=== PATIENT | female | born 1950 ===

== ENCOUNTER 2016-10-08 06:24 | Day surgery (SDC) | payer MEDICARE, OTHER ==
[2015-08-24 13:10] VITALS: BMI 27.1
--- NOTE | 2016-10-05 18:39 | HP ---
REASON FOR ADMISSION: Left heart cath, possible angioplasty, abnormal stress test. BRIEF CLINICAL HISTORY: This is a 66-year-old female with past medical history significant for diabe mando, hypertension, hyperlipidemia. Having some chest discomfort and dyspnea on exertion so patient u nderwent a stress test that was abnormal, so patient is scheduled for elective cardiac cath and possi ble angioplasty. PAST HISTORY: Significant for diabetes, hypertension, hyperlipidemia. SOCIAL HISTORY: Denies any smoking. Denies any history of alcohol abuse. CURRENT MEDICATIONS: The patient is taking vitamin E, multivitamin, insulin, ascorbic acid, Zetia, r osuvastatin, that is Crestor ____ mg daily; Zemplar 1 mg daily, metformin 1000, tramadol and Zanaflex and valsartan, hydrochlorothiazide. ALLERGIES: ONGLYZA, ABDOMINAL PAIN. RECENT CARDIAC WORKUP: As follows: The patient had a stress test on 09/19/2016 that shows equivocal versus partial reversible ischemia, apical anteroseptal suggestive of ischemia. When comparison from 07/26/2014, there appears new and larger and more reversible. The patient has also echocardiography 09/13/2016, Dr. Dey's office, that showed ejection fraction 69%, moderate diastolic dysfunction, mi ld mitral regurgitation, mild tricuspid regurgitation. REVIEW OF SYSTEMS: As per HPI. PHYSICAL EXAMINATION: As follows: VITAL SIGNS: Height of the patient is 5 feet 4 inches, weight of the patient 158 pounds, body mass i ndex 27 kg/m2. Heart rate 64, blood pressure 130/80. HEENT: PERRLA. Extraocular muscles intact. NECK: Supple. No carotid bruits. No thyromegaly. CHEST: Clear to auscultation. HEART: S1, S2 regular. ABDOMEN: Soft. EXTREMITIES: Clubbing and cyanosis negative. BLOOD WORKUP: Pending. IMPRESSION: Abnormal stress test, mitral and tricuspid regurgitation, diabetes, hypertension, hyperl ipidemia, multiple risk factors of coronary artery disease, abnormal stress test in comparison to the last stress 2012, new. We will proceed for cardiac catheterization. We will load with 300 Plavix, aspirin. Risk, benefits, alternatives discussed with the patient. We will proceed for cardiac rose terization. Further recommendation after cardiac catheterization. We will follow with you. Thank you, ____, for providing us the opportunity in taking care of the patient. Angela Oneil MD cc: [id number] TT: 10/05/2016 18:38:31 sn
[2016-10-08 07:01] LABS: ADD MANUAL DIFF? NO
[2016-10-08 07:09] LABS: BASO # 0.03 K/mm3 (0.0-2.0); BASO % 0.5 % (0.0-3.0); EOS # 0.5 (0.0-0.7); EOS % 8.2 % (1.5-5.0); GRAN # 2.47 (1.4-6.5); GRAN % 40.7 % (50.0-68.0); HEMATOCRIT 36.1 % (36.0-48.0); LYMPH # 2.6 (1.2-3.4); LYMPH % 41.9 % (22.0-35.0); MEAN CELL VOLUME 85.7 fL (80.0-105.0); MEAN CORPUSCULAR HEMOGLOBIN 28.5 pg (25.0-35.0); MEAN CORPUSCULAR HGB CONC 33.2 g/dl (31.0-37.0); MEAN PLATELET VOLUME 11.5 fl (7.0-11.0); MONO # 0.5 (0.1-0.6); MONO % 8.7 % (1.0-6.0); PLATELET COUNT 235 10^3/uL (120.0-450.0); RED CELL DISTRIBUTION WIDTH 13.4 % (11.5-14.5); WHITE BLOOD COUNT 6.1 10^3/ul (4.5-11.0)
[2016-10-08] MEDS ORDERED: Lidocaine 2% Inj (20ml) ONE (07:10)
[2016-10-08] MEDS ORDERED: Nitroglycerin 50mg in D5W 50 MG/250 ML BOTTLE IV ONE (07:11)
[2016-10-08 07:13] LABS: CALCIUM 9.7 mg/dL (8.4-10.5); POTASSIUM 4.5 mmol/L (3.6-5.0)
[2016-10-08 07:17] LABS: INR 1.01 (0.93-1.08)
[2016-10-08] MEDS ORDERED: Iodixanol 320 mg/ml 150 ml Bottle IV ONE (07:23)
[2016-10-08] MEDS ORDERED: Midazolam 2 MG/2 ML VIAL ONE (07:54)
[2016-10-08 08:08] VITALS: TEMP 98; O2SAT 100
[2016-10-08] MEDS ORDERED: Bacitracin 500 Units/gm Oint Foilpak UD TOP ONE (08:41)
[2016-10-08] MEDS ORDERED: Sodium Chloride 0.9% 1,000 ML IV SCH (08:45)
[2016-10-08] MEDS ORDERED: Bacitracin 500 Units/gm Oint Foilpak UD ONE (10:55)
[2016-10-08 11:19] VITALS: BP 132/63; PULSE 58; RESP 18
--- NOTE | 2016-10-08 18:05 | CARD ---
APPROVED REPORT Procedure(s) performed: Left Heart Catheterization HISTORY The patient is a 66 year-old female with a history of : most recent EF: 65%. (EF Method: RADIONUCLIDE), renal failure without dialysis, diabetes mellitus with insulin treatment , previous diagnostic cath, hypertension , dyslipidemia . INDICATION The indication(s) include : positive stress test. CASE TECHNIQUE The patient was brought electively to the Cardiac Catheterization Laboratory in a fasting state and was prepped and draped in a sterile manner. The left wrist was infiltrated with 2% Lidocaine subcutaneous anesthesia. A 6 Fr Glidesheath (Radial) sheath was inserted into the left radial artery without difficulty. Coronary angiography was performed using coronary diagnostic catheters. The left coronary system was accessed and visualized with a Diagnostic ,5 Fr JL 3.5 catheter. The right coronary system was accessed and visualized with a Diagnostic ,5 Fr JR 4 catheter. The left ventricle was accessed and visualized with a 5 Fr Pigtail 145 (Angled) catheter. Left ventricular/Aortic Valve gradient assessed on pullback. Left ventriculogram was performed in [place] projection. The patient tolerated the procedure well and there were no complications associated with the procedure. Vessel Analysis The patient's coronary anatomy is right dominant. The left main coronary artery is a large size vessel with intimal irregularities and without significant stenosis. The left main bifurcates to the left anterior descending and circumflex. The left anterior descending artery is a medium size vessel with diffuse calcification noted throughout this vessel and without significant stenosis. There is a 55-60% stenosis in the mid segment. The first diagonal branch is a small size vessel with diffuse calcification noted throughout this vessel and without significant stenosis. The second diagonal branch is a small size vessel with diffuse calcification noted throughout this vessel and without significant stenosis. The circumflex artery is a large size vessel with diffuse calcification noted throughout this vessel and without significant stenosis. The right coronary artery is a large size vessel with diffuse calcification noted throughout this vessel and without significant stenosis. There is a 30-40% stenosis in the mid segment. The right posterior descending artery is a small size vessel with diffuse calcification noted throughout this vessel and without significant stenosis. The right posterolateral branch is a small size vessel with diffuse calcification noted throughout this vessel and without significant stenosis. Left Ventricle The left ventricle is normal in size with normal contractility. The left ventricular ejection fraction is estimated to be 65%. The left ventricular end diastolic pressure is 15 mmHg. There was no gradient across the aortic valve upon pullback. Conclusion Non obstructive CAD, Limited to Mid LAD Moderate Diz( 55%) and mid Diz to Mid RCA (30-40%). Preserved Lv Fx. EF-65%, EDP-15 mmof hg. When film compared from previous Cath 09/25/2007 No Significant Changes noted in CAD. Recommendations Aggressive Medical TherapyCardiac Risk Reduction Program Weight Loss Reduction Program CC; drs. Miller/ Yissel.
--- NOTE | 2016-10-08 18:57 | DS ---
BRIEF CLINICAL HISTORY: This is a 66-year-old female with past medical history significant for diabe mando, hypertension, hyperlipidemia, obesity, underwent cardiac catheterization because of abnormal str ess test dated 10/08/2016 that showed nonobstructive coronary artery disease. The patient is current ly being discharged with a plan to be followed up with Dr. Oneil in 1-2 weeks. DISCHARGE MEDICATIONS: Include resumption of all previous medication. PRINCIPAL PROCEDURE DONE DURING ADMISSION: Included left heart catheterization from the left radial approach. DIAGNOSES: Nonobstructive coronary artery disease limited only to mid left anterior descending 50% a nd diagonal 1 at 50-60%, preserved left ventricular function. Angela Oneil MD cc:Damian Miller MD; Angela Dey MD [phone] TT: 10/08/2016 18:56:33 vt
== END 2016-10-08 12:15 | disposition home or self-care (01) ==
LOC: CATH 06:24
PROVIDERS: ATTEND Internal Medicine Cardiovascular Disease
DX: I25.10 Atherosclerotic heart disease of native coronary artery without angina pectoris (principal); I10 Essential (primary) hypertension; E78.5 Hyperlipidemia, unspecified; I08.1 Rheumatic disorders of both mitral and tricuspid valves; E11.9 Type 2 diabetes mellitus without complications; Z79.4 Long term (current) use of insulin
CPT/HCPCS: 36415; 80048; 80061; 85025; 85610; 85730; 86850; 86900; 93458; 99152; C1769; C1887 ×2; J1644 ×2; J2250; J3010; J7040 ×2

== ENCOUNTER 2017-06-17 09:53 | Emergency (ER) | payer MEDICARE, SELFPAY ==
[2017-06-17 09:53] VITALS: BMI 27.1
[2017-06-17] MEDS ORDERED: Oxycodone/Acetaminophen 2.5/325 mg Tab PO STA (11:13)
--- NOTE | 2017-06-17 11:18 | ED PDOC ---
Arrival/HPI - General Chief Complaint: Hip Pain Time Seen by Provider: 06/17/17 11:12 Historian: Patient - History of Present Illness Narrative History of Present Illness (Text): 06/17/17 11:13 Ines Luna is a 67 year old female, whose past medical history includes hypertension, diabetes, arthritis, and high cholesterol, who presents to the emergency department complaining of constant left hip pain for 4 days. She reports that the pain is worse with ambulation. Patient states that she called her doctor's office but the phone was busy so she went to the emergency department. Patient notes that she takes Tramadol for her chronic back pain and reports that it helped with her hip pain. Patient denies any trauma. Denies nausea, vomiting, abdominal pain, chest pain, shortness of breath, diarrhea, constipation, leg numbness, leg weakness, or difficulty ambulating. PMD: Dr. Miller Time/Duration: < week Symptom Onset: Gradual Symptom Course: Unchanged Activities at Onset: Light Context: Home Past Medical History - Provider Review Nursing Documentation Reviewed: Yes - Infectious Disease Hx of Infectious Diseases: None - Tetanus Immunization Tetanus Immunization: Unknown - Reproductive Menopause: Yes - Cardiac Hx Pacemaker: No - Neurological Hx Paralysis: No - HEENT Hx Glaucoma: Yes (ou) - Endocrine/Metabolic Hx Diabetes Mellitus Type 2: Yes - Hematological/Oncological Hx Blood Transfusions: No Hx Blood Transfusion Reaction: No - Musculoskeletal/Rheumatological Hx Musculoskeletal Disorders: Yes - Psychiatric Hx Emotional Abuse: No Hx Physical Abuse: No Hx Substance Use: No - Surgical History Hx Hysterectomy: Yes (partial hysterectomy) Other/Comment: back surgery lower. nine years ago - Anesthesia Hx Anesthesia Reactions: No Hx Malignant Hyperthermia: No - Suicidal Assessment Feels Threatened In Home Enviroment: No Family/Social History - Physician Review Nursing Documentation Reviewed: Yes Family/Social History: No Known Family HX Smoking Status: Never Smoked Hx Alcohol Use: No Hx Substance Use: No Hx Substance Use Treatment: No Allergies/Home Meds Allergies/Adverse Reactions: Allergies saxagliptin HCl [From Onglyza] Adverse Reaction (Severe, Verified 10/02/16 09:54 ) ABD PAIN Home Medications: Home Meds Medication Instructions Recorded Confirmed Metformin HCl [Metformin] 1,000 mg PO BID 07/01/13 10/08/16 Paricalcitol [Zemplar] 1 mcg PO 5XD 07/01/13 10/08/16 tiZANidine [Zanaflex] 4 mg PO HS 03/22/14 10/08/16 traMADol [Ultram] 50 mg PO Q8H PRN 03/22/14 10/08/16 Ezetimibe [Zetia] 10 mg PO DAILY 07/25/15 10/08/16 Rosuvastatin Calcium [Crestor] 20 mg PO DAILY 08/24/15 10/08/16 Sevelamer Carbonate [Renvela] 800 mg PO TID 08/24/15 10/08/16 Valsartan/Hydrochlorothiazide 1 tab PO QAM 08/24/15 10/08/16 [Valsartan-Hctz 320-12.5 mg Tab] Ascorbic Acid [Vitamin C 500 mg 500 mg PO DAILY 10/02/16 10/08/16 Tab] Bimatoprost [Lumigan] 1 drop LEFTEYE QAM 10/02/16 10/08/16 Insulin Aspart/Insulin Aspar 30 units SC ACBD 10/02/16 10/08/16 [Novolog Mix 70/30 (70/30 units/ml)] Multivitamin [Daily Praneeth] 1 tab PO DAILY 10/02/16 10/08/16 Vitamin E Acetate [Vitamin E] 400 unit PO DAILY 10/02/16 10/08/16 Review of Systems - Physician Review All systems were reviewed & negative as marked: Yes - Review of Systems Constitutional: absent: Fevers, Night Sweats Eyes: absent: Vision Changes ENT: absent: Hearing Changes Respiratory: absent: SOB, Cough Cardiovascular: absent: Chest Pain Gastrointestinal: absent: Abdominal Pain, Constipation, Diarrhea, Nausea, Vomiting Genitourinary Female: absent: Dysuria, Frequency, Hematuria, Urine Output Changes, Vaginal Bleeding, Vaginal Discharge Musculoskeletal: Back Pain (chronic), Other (Left hip pain) Skin: absent: Rash, Pruritis Neurological: absent: Headache, Dizziness, Focal Weakness, Gait Changes, Speech Changes, Facial Droop, Disequilibrium, Seizure Endocrine: absent: Diaphoresis Hemo/Lymphatic: absent: Adenopathy Psychiatric: absent: Anxiety, Depression Physical Exam Vital Signs Reviewed: Yes Vital Signs Temp Pulse Resp BP Pulse Ox 06/17/17 12:36 65 18 124/69 97 06/17/17 11:18 98.3 F 63 18 126/72 97 Temperature: Afebrile Blood Pressure: Normal Pulse: Regular Respiratory Rate: Normal Appearance: Positive for: Well-Appearing, Non-Toxic, Comfortable Pain Distress: None Mental Status: Positive for: Alert and Oriented X 3 - Systems Exam Head: Present: Atraumatic, Normocephalic Pupils: Present: PERRL Extroacular Muscles: Present: EOMI Conjunctiva: Present: Normal Mouth: Present: Moist Mucous Membranes Neck: Present: Normal Range of Motion. No: Meningeal Signs, Paraspinal Tenderness Respiratory/Chest: Present: Clear to Auscultation, Good Air Exchange. No: Respiratory Distress, Accessory Muscle Use Cardiovascular: Present: Regular Rate and Rhythm, Normal S1, S2. No: Murmurs Abdomen: Present: Normal Bowel Sounds. No: Tenderness, Distention, Peritoneal Signs Back: Present: Normal Inspection Upper Extremity: Present: Normal Inspection. No: Cyanosis, Edema Lower Extremity: Present: Normal ROM, Tenderness (Bony left sided hip tenderness ; steady gait) Neurological: Present: GCS=15, CN II-XII Intact, Speech Normal Skin: Present: Warm, Dry, Normal Color. No: Rashes Psychiatric: Present: Alert, Oriented x 3, Normal Insight, Normal Concentration Medical Decision Making ED Course and Treatment: 06/17/17 11:19 Impression: 67 year old female complaining of constant left hip pain for 4 days. Afebrile and well appearing Differential Diagnosis included but are not limited to: Arthritis. R/o fracture Plan: -- Percocet -- Hip X-ray -- Reassess and disposition Prior Visits: Notes and results from previous visits were reviewed. Patient was last seen in the emergency department on 07/25/15 complaining of abdominal pain. Patient was discharged home. Progress Notes: 06/17/17 12:17 Xray negative for fracture- shows "[id number] bilateral osteoarthritic changes. No evidence of acute fracture or dislocation." Patient has no weakness or numbness. She has hx of extensive arthritis. Instructed to follow- up with PMD for further imaging, likely outpatient MRI - RAD Interpretation Radiology Orders: 06/17/17 11:13 Hip Bi with Pelvis Fall Protocol [HIP MIN 2V W/ PELVIS GABBI] [RAD] Stat - Medication Orders Current Medication Orders: Discontinued Medications Oxycodone/Acetaminophen (Percocet 2.5/325 Mg Tab) 1 tab PO STAT STA Stop: 06/17/17 11:14 Last Admin: 06/17/17 12:06 Dose: 1 tab - Scribe Statement The provider has reviewed the documentation as recorded by the Ce Pierce Provider Scribe Attestation: All medical record entries made by the Scribe were at my direction and personally dictated by me. I have reviewed the chart and agree that the record accurately reflects my personal performance of the history, physical exam, medical decision making, and the department course for this patient. I have also personally directed, reviewed, and agree with the discharge instructions and disposition. Disposition/Present on Arrival - Present on Arrival Any Indicators Present on Arrival: No History of DVT/PE: No History of Uncontrolled Diabetes: No Urinary Catheter: No History of Decub. Ulcer: No History Surgical Site Infection Following: None - Disposition Have Diagnosis and Disposition been Completed?: Yes Diagnosis: Hip pain, left Disposition: HOME/ ROUTINE Disposition Time: 12:18 Patient Plan: Discharge Condition: GOOD Discharge Instructions (ExitCare): Hip Pain (ED) Additional Instructions: Follow-up with Dr. Miller within 2 days. Take tramadol for pain. Return with any worsening symptoms. Referrals: Damian Miller MD [Primary Care Provider] - Follow up with primary Forms: [employer] ([place])
[2017-06-17 11:21] VITALS: RESP 18; TEMP 98.3; O2SAT 97
[2017-06-17 12:36] VITALS: BP 124/69; PULSE 65
--- NOTE | 2017-06-17 15:26 | RAD ---
PROCEDURE: Radiographs of the pelvis and bilateral hips HISTORY: L hip pain, hx of arthritis COMPARISON: None. FINDINGS: BONES: Pelvis: Unremarkable. Right hip:Unremarkable. Left hip:Unremarkable. JOINTS: Right hip: Mild osteoarthritic changes Left hip: Mild to moderate osteoarthritic changes Sacroiliac Joints: Arthritic degenerative changes Pubic symphysis: Unremarkable. SOFT TISSUES: Normal. OTHER FINDINGS: Status post hardware and internal fixation at the no lower spine. IMPRESSION: [id number] bilateral osteoarthritic changes. No evidence of acute fracture or dislocation.
== END 2017-06-17 12:42 | disposition home or self-care (01) ==
LOC: ED 09:53
DX: M25.552 Pain in left hip (principal)

== ENCOUNTER 2018-08-05 12:23 | Outpatient (CLI) | payer MEDICARE | END 2018-08-05 12:24 | disposition home or self-care (01) | LOC: RAD 12:23 ==

== ENCOUNTER 2018-08-06 09:39 | Outpatient (CLI) | payer MEDICARE | END 2018-08-06 09:40 | disposition home or self-care (01) | LOC: LAB 09:39 ==